=== PATIENT | female | born 1990 | race Asian ===

== ENCOUNTER 2023-09-22 08:32 | Inpatient (IN) | payer OTHER, SELFPAY ==
[2023-09-22 08:49] VITALS: BP 120/79; BMI 33.7
[2023-09-22 09:32] LABS: % Basophils 0.2 % (0-2); % Eosinophils 0.7 % (0-6); % Immature Granulocytes 0.7 % (0-0.5); % Lymphocytes 17.8 % (20.5-51.1); % Monocytes 12.7 % (1.7-9.3); % Neutrophils 67.9 % (42.2-75.2); Absolute Monocytes 0.7 10^3/uL (0.1-0.6); Absolute Neutrophils 3.9 10^3/uL (1.4-6.5); Hematocrit 36.4 % (37.0-47.0); Hemoglobin 13.1 g/dL (12.0-16.0); Mean Platelet Volume 10.9 fL (7.4-10.4); Nucleated Red Blood Cells % 0 %; Platelet Count 157 10^3/uL (130-400); Red Blood Cell Count 4.09 10^6/uL (4.20-5.40); White Blood Cell Count 5.7 10^3/uL (4.8-10.8)
[2023-09-22] MEDS: CYTOTEC 50 MICROGRAM PO ×2 (10:25→13:53)
[2023-09-22] MEDS: LR 1000 IV ×3 (11:26→19:40)
[2023-09-22] MEDS: PITOCIN 30 UNITS/NSS 500 ML IV ×2 (19:40→23:04)
[2023-09-22] MEDS: SUBLIMAZE 100 MCG EPIDURAL (19:48)
[2023-09-22] MEDS: FENTANYL/BUPIVACAINE 100 EPIDURAL (19:48)
[2023-09-23] MEDS: METHERGINE INJECTION 0.200000000000000011 MG IM (00:51)
[2023-09-23] MEDS: MOTRIN 600 MG PO ×2 (05:07→14:52)
[2023-09-23 05:34] LABS: Hematocrit 35.5 % (37.0-47.0); Hemoglobin 12.3 g/dL (12.0-16.0)
[2023-09-23] MEDS: PRENATAL PLUS 1 TABLET PO (07:47)
[2023-09-23 12:14] LABS: Syphilis/T. pallidum Ab Reflex Negative (Negative)
[2023-09-24] MEDS: MOTRIN 600 MG PO (06:05)
[2023-09-24] MEDS: PRENATAL PLUS PO (08:30)
== END 2023-09-24 10:05 | disposition home or self-care (01) | DRG 807 ==
LOC: LDRP 08:32
PROVIDERS: ADMITTING PHYSICIAN Obstetrics & Gynecology
PROC: 10E0XZZ Delivery of Products of Conception, External Approach (ICD-10-PCS; 2023-09-22)
PROC: 10907ZC Drainage of Amniotic Fluid, Therapeutic from Products of Conception, Via Natural or Artificial Opening (ICD-10-PCS; 2023-09-22)
PROC: 0UQMXZZ Repair Vulva, External Approach (ICD-10-PCS; 2023-09-22)
PROC: 6A550ZT Pheresis of Cord Blood Stem Cells, Single (ICD-10-PCS; 2023-09-22)
PROC: 0HQ9XZZ Repair Perineum Skin, External Approach (ICD-10-PCS; 2023-09-22)
PROC: 3E0DXGC Introduction of Other Therapeutic Substance into Mouth and Pharynx, External Approach (ICD-10-PCS; 2023-09-22)
DX: O70.0 First degree perineal laceration during delivery (principal); Z37.0 Single live birth; Z3A.39 39 weeks gestation of pregnancy; F90.9 Attention-deficit hyperactivity disorder, unspecified type
CPT/HCPCS: 85014; 85018; 85025; 86780; 86850; 86900; 86901